=== PATIENT | male | born 1985 | race African-American/Black ===

== ENCOUNTER 2024-12-13 11:01 | Emergency (ER) | payer MEDICAID ==
[~2024-12-13] VITALS: Ht 170.2 cm; Wt 68.2 kg
[2024-12-13 11:18] LABS: COVID AG,FIA SOURCE NASAL SWAB
[2024-12-13 11:29] LABS: PLATELET COUNT (AUTO) 276 K/uL (150-450); RED BLOOD CELL COUNT(AUTO) 5.27 MIL/uL (4.50-5.90); RED CELL DISTRIBUTION WIDTH 13.4 % (11.5-14.5); WHITE BLOOD COUNT (AUTO) 8.5 K/uL (4.5-11.0)
[2024-12-13 11:42] LABS: CREATININE 0.87 mg/dL (0.60-1.30); GLUCOSE,RANDOM 96 mg/dL (70-110); SODIUM SERUM 135 mmol/L (136-145); UREA NITROGEN, BLOOD 13 mg/dL (7-18)
[2024-12-13 11:43] LABS: CALCIUM, TOTAL 9.1 mg/dL (8.8-10.5); GLOMERULAR FILTR. RATE CALC > 60 mL/min (>60)
[2024-12-13] MEDS: IBUPROFEN 600 MG TABLET PO ONE (11:48)
[2024-12-13] MEDS: ACETAMINOPHEN 500 MG TABLET PO ONE (11:48)
[2024-12-13 11:55] LABS: SARS-COV2 (COVID) ANTIGEN,FIA Negative (Negative)
[2024-12-13 12:28] LABS: INFLUENZA TYPE A NEGATIVE FOR TYPE A (NEGATIVE); INFLUENZA TYPE B NEGATIVE FOR TYPE B (NEGATIVE)
[2024-12-13 12:50] VITALS: TEMP 100.1
[2024-12-13 13:32] LABS: APPEARANCE,URINE CLEAR (CLEAR); GLUCOSE, URINE (UA) NEGATIVE (NEGATIVE); LEUKOCYTE ESTERASE ,URINE NEGATIVE (NEGATIVE); NITRATE,URINE NEGATIVE (NEGATIVE); OCCULT BLOOD,URINE MODERATE (NEGATIVE); SPECIFIC GRAVITIY, URINE 1.024 (1.003-1.030)
[2024-12-13 13:46] LABS: SQUAMOUS EPITHELIAL CELL,UR Few /LPF (None Seen)
[2024-12-13] MEDS: CEPHALEXIN MONOHYDRATE 500 MG CAPSULE PO ONE (14:25)
[2024-12-13 15:40] VITALS: BP 119/75; PULSE 88; RESP 22; O2SAT 95
[2024-12-14] MEDS ORDERED: OLAN10TA74 PO (14:17)
[2024-12-14] MEDS ORDERED: OLAN2.5T78 PO (14:17)
[2024-12-14] MEDS ORDERED: BUPR-50 PO (14:18)
[2024-12-14] MEDS ORDERED: CEPH-558 PO (14:19)
== END 2024-12-13 15:42 | disposition short-term general hospital (02) ==
LOC: EMS 11:01
DX: R50.9 Fever, unspecified (principal); F20.9 Schizophrenia, unspecified; R07.89 Other chest pain; R07.81 Pleurodynia; R05.9 Cough, unspecified; F17.210 Nicotine dependence, cigarettes, uncomplicated; J98.4 Other disorders of lung; Z20.822 Contact with and (suspected) exposure to COVID-19
CPT/HCPCS: 71045; 80048; 81001; 85025; 87804; 99284; 36415-L1; 36415-TC

== ENCOUNTER 2024-12-15 20:51 | Emergency (ER) | payer MEDICAID ==
[~2024-12-15] VITALS: Ht 170.2 cm; Wt 68.6 kg
[~2024-12-15 20:51] MED LIST: BUPR-50 PO; CEPH-558 PO; OLAN10TA74 PO
[2024-12-15 21:50] LABS: COVID AG,FIA SOURCE NASAL SWAB
[2024-12-15 21:54] LABS: PLATELET COUNT (AUTO) 271 K/uL (150-450); RED BLOOD CELL COUNT(AUTO) 5.08 MIL/uL (4.50-5.90); RED CELL DISTRIBUTION WIDTH 13.5 % (11.5-14.5); WHITE BLOOD COUNT (AUTO) 3.4 K/uL (4.5-11.0)
[2024-12-15 21:58] LABS: CALCIUM, TOTAL 9.2 mg/dL (8.8-10.5); CREATININE 0.77 mg/dL (0.60-1.30); GLOMERULAR FILTR. RATE CALC > 60 mL/min (>60); GLUCOSE,RANDOM 92 mg/dL (70-110); SODIUM SERUM 138 mmol/L (136-145); UREA NITROGEN, BLOOD 10 mg/dL (7-18)
[2024-12-15 22:07] LABS: TROPONIN I-HIGH SENSITIVITY 5 ng/L (<76)
[2024-12-15 22:30] LABS: SARS-COV2 (COVID) ANTIGEN,FIA Positive (Negative)
[2024-12-15 22:32] LABS: INFLUENZA TYPE A NEGATIVE FOR TYPE A (NEGATIVE); INFLUENZA TYPE B NEGATIVE FOR TYPE B (NEGATIVE)
[2024-12-15] MEDS ORDERED: NIRM1TAB10 PO (23:29)
[2024-12-15] MEDS ORDERED: ALBU18HF12 IH (23:30)
[2024-12-16 00:45] VITALS: BP 124/71; PULSE 71; RESP 18; TEMP 97.3; O2SAT 98
== END 2024-12-16 01:09 | disposition home or self-care (01) ==
LOC: EMS 20:51
DX: U07.1 COVID-19 (principal); R05.9 Cough, unspecified; R09.81 Nasal congestion; F20.9 Schizophrenia, unspecified; F31.9 Bipolar disorder, unspecified; F17.210 Nicotine dependence, cigarettes, uncomplicated; Z79.899 Other long term (current) drug therapy
CPT/HCPCS: 71045; 80048; 84484; 85025; 87804; 93005; 99285; 36415-L1; 36415-TC